=== PATIENT | female | born 1940 | race Two or more races ===

== ENCOUNTER 2021-01-01 10:00 | Outpatient (CLI) | payer MEDICARE, BC | END 2021-01-01 23:59 | disposition home or self-care (01) | LOC: WOU 10:00 | PROVIDERS: ATTEND Podiatrist Foot & Ankle Surgery | DX: R60.0 Localized edema (principal); M20.42 Other hammer toe(s) (acquired), left foot; M79.675 Pain in left toe(s) | CPT/HCPCS: G0463 ==

== ENCOUNTER 2021-01-04 12:33 | Outpatient (CLI) | payer MEDICARE, BC ==
[2021-01-04 14:31] LABS: BASOPHILS # (AUTO) 0.1 K/uL (0.0-0.2); BASOPHILS % (AUTO) 0.8 % (0.0-2.0); HEMATOCRIT 38 % (33-45); HEMOGLOBIN 12.6 g/dL (11.5-14.8); LYMPHOCYTES # (AUTO) 2.4 K/uL (0.8-4.8); LYMPHOCYTES % (AUTO) 33.1 % (20.0-44.0); MEAN CORPUSCULAR HGB CONC 33 g/dl (31.0-36.0); MEAN CORPUSCULAR VOLUME 89 fL (82-100); MONOCYTES # (AUTO) 0.7 K/uL (0.1-1.30); NEUTROPHILS % (AUTO) 55.1 % (43.0-81.0); PLATELET COUNT (AUTO) 358 K/uL (150-450); RED BLOOD CELL COUNT(AUTO) 4.27 MIL/uL (4.0-5.2); WHITE BLOOD COUNT (AUTO) 7.2 K/uL (4.3-11.0)
== END 2021-01-04 23:59 | disposition home or self-care (01) ==
LOC: MRI 12:33
PROVIDERS: ATTEND Podiatrist Foot & Ankle Surgery
DX: L03.032 Cellulitis of left toe (principal); R60.9 Edema, unspecified; M79.89 Other specified soft tissue disorders
CPT/HCPCS: 36415; 73718-TC; 85025-TC; 85652-TC; 86140-TC

== ENCOUNTER 2021-01-08 10:15 | Outpatient (CLI) | payer MEDICARE, BC | END 2021-01-08 23:59 | disposition home or self-care (01) | LOC: WOU 10:15 | PROVIDERS: ATTEND Podiatrist Foot & Ankle Surgery | DX: M86.8X7 Other osteomyelitis, ankle and foot (principal); M79.675 Pain in left toe(s); R60.0 Localized edema | CPT/HCPCS: G0463 ==